=== PATIENT | female | born 1990 | race Two or more races ===

== ENCOUNTER 2024-01-01 09:38 | Outpatient (CLI) | payer OTHER | END 2024-01-01 09:40 | disposition home or self-care (01) | LOC: PRENATAL 09:38 | PROVIDERS: ATTEND Obstetrics & Gynecology Maternal & Fetal Medicine | DX: O35.3XX0 Maternal care for (suspected) damage to fetus from viral disease in mother, not applicable or unspecified (principal); O44.00 Complete placenta previa NOS or without hemorrhage, unspecified trimester; O34.40 Maternal care for other abnormalities of cervix, unspecified trimester; Z3A.23 23 weeks gestation of pregnancy ==

== ENCOUNTER 2024-03-12 15:44 | Outpatient (CLI) | payer OTHER | END 2024-03-12 15:51 | disposition home or self-care (01) | LOC: PRENATAL 15:44 | PROVIDERS: ATTEND Obstetrics & Gynecology Maternal & Fetal Medicine | DX: O26.849 Uterine size-date discrepancy, unspecified trimester (principal); O36.8199 Decreased fetal movements, unspecified trimester, other fetus; O34.40 Maternal care for other abnormalities of cervix, unspecified trimester; Z3A.33 33 weeks gestation of pregnancy ==